=== PATIENT | female | born 1955 | race Caucasian/White ===

== ENCOUNTER 2018-12-25 13:42 | Outpatient (CLI) | payer OTHER ==
--- NOTE | 2018-12-25 14:11 | RAD ---
XR Chest Pa Lat STANDARD HISTORY: Cough congestion fever COMPARISON: 10/06/2014 FINDINGS: The heart size is normal. The lungs are well expanded without focal areas of consolidation, pneumothorax or pleural effusions. There is been interval development of a left suprahilar mass, highly suspicious for malignancy. IMPRESSION: Findings suspicious for malignancy. Further evaluation with contrast enhanced CT scan is recommended.
== END 2018-12-25 13:43 | disposition home or self-care (01) ==
LOC: NAV RAD 13:42
PROVIDERS: ATTEND Family Medicine
DX: J44.9 Chronic obstructive pulmonary disease, unspecified (principal)
CPT/HCPCS: 71046